=== PATIENT | male | born 1970 | race Two or more races ===

== ENCOUNTER 2017-10-19 18:27 | Emergency (ER) | payer OTHER ==
[~2017-10-19] VITALS: Ht 177.8 cm; Wt 120.2 kg
[2017-10-19] MEDS ORDERED: CRESTOR20 MG (18:36)
[2017-10-19] MEDS ORDERED: METFORMIN HCL500 MG (18:36)
[2017-10-20] MEDS ORDERED: LEVSIN/SL0.125 MG SL (02:02)
[2017-10-20] MEDS ORDERED: DOLOGESIC-DF 51 EACH PO (02:02)
== END 2017-10-20 02:17 | disposition home or self-care (01) ==
LOC: ER 18:27
DX: N20.0 Calculus of kidney (principal); R10.32 Left lower quadrant pain

== ENCOUNTER 2023-09-14 06:00 | Day surgery (SDC) | payer OTHER ==
[2023-09-07 10:20] LABS: HEMATOCRIT 42.3 % (39.0-48.0); HEMOGLOBIN 14.1 g/dL (13-16.00); MEAN CELL VOLUME 83.2 fL (80.0-100.00); MEAN CORPUSCULAR HEMOGLOBIN 27.7 pg (27.00-32.0); MEAN CORPUSCULAR HGB CONC 33.3 g/dl (32.0-36.0); PLATELET COUNT 292 K/uL (150-450); RED BLOOD COUNT 5.09 M/uL (4.00-6.00); RED CELL DISTRIBUTION WIDTH 14.6 % (11.5-14.5)
[2023-09-07 10:30] LABS: PH,URINE 5.5 (5.0-8.0); URINE APPEARANCE Clear; URINE BILIRRUBIN Negative (NEGATIVE); URINE BLOOD Negative; URINE COLOR Yellow; URINE LEUKOCYTE Negative; URINE NITRATE Negative; URINE PROTEIN Trace (NEGATIVE)
[2023-09-07 10:34] LABS: URINE WBC 4.7 uL (0.0-23.2)
[2023-09-07 10:40] LABS: URINE GLUCOSE >=1000 MG/DL (NEGATIVE); URINE RBC 1.9 uL (0.0-20.8)
[2023-09-07 11:17] LABS: INR 0.99; PARTIAL THROMBOPLASTIN TIME 28.3 SECONDS (22.0-34.0); PROTHROMBIN TIME 10.4 SECONDS (9.0-11.5)
[2023-09-07 11:22] LABS: ALBUMIN 3.9 gm/dL (3.4-5.0); BILIRUBIN TOTAL 0.63 mg/dL (0.3-1.2); CREATININE SERUM 0.72 mg/dL (0.70-1.30); GFR 113.34; GLOBULINA 3.7 G/DL (2.4-3.5); POTASSIUM 4.66 mEq/L (3.5-5.1); TOTAL PROTEIN 7.6 gm/dL (6.4-8.2)
[~2023-09-14] VITALS: Ht 177.8 cm; Wt 113.4 kg
[~2023-09-14 06:00] MED LIST: CRESTOR20 MG; DOLOGESIC-DF 51 EACH PO; LEVSIN/SL0.125 MG SL; METFORMIN HCL500 MG
[2023-09-14] MEDS ORDERED: CEFAZOLIN SODIUM 1,000 MG in 0.9 % SODIUM CHLORIDE 50 ML IV ONE (10:00)
== END 2023-09-14 11:40 | disposition home or self-care (01) ==
LOC: CIR.AMB 06:00
PROVIDERS: ATTEND Orthopaedic Surgery Hand Surgery
DX: M65.332 Trigger finger, left middle finger (principal); E78.00 Pure hypercholesterolemia, unspecified; I10 Essential (primary) hypertension